=== PATIENT | female | born 1950 | race Caucasian/White ===

== ENCOUNTER → 2018-05-07 | Outpatient (CLI) | payer MEDICARE, OTHER ==
[~2018-05-07] MED LIST: CALCIUM-500 5001 CTB PO; CIPRO 500MG TA500 MG PO; COLACE 100100 MG/CAP PO; CRANBERRY500 M3 PO; EXCEDRIN TENSIO1 TAB PO; FERROUS SULFATE65 MG PO; MULTI VITAMINS1 TAB PO; NORCO 325 MG-51 TAB PO; PEPCID 20MG TAB20 MG PO; PYRIDIUM200 M1 PO; TYLENOL 500MG500 MG PO; [UNRECOGNIZED DRUG - CODE] PO
== END ==
LOC: MC.RAD 09:57
DX: Z12.31 Encounter for screening mammogram for malignant neoplasm of breast (principal); Z98.82 Breast implant status

== ENCOUNTER 2019-09-16 11:10 | Observation (INO) | payer MEDICARE, OTHER ==
[2019-09-16] VITALS (11 sets, daily range): BP systolic 99–121; BP diastolic 43–59; PULSE 58–98; TEMP 98.4–99.7
[~2019-09-16] VITALS: Ht 160 cm; Wt 60.7 kg
[2019-09-16 11:56] LABS: HEMATOCRIT 46.5 % (37.0-47.0); HEMOGLOBIN 15.1 g/dl (12.5-16.0); MEAN CELL VOLUME 91 fl (80.0-100.0); MEAN CORPUSCULAR HEMOGLOBIN 30 pg (27.0-31.0); MEAN CORPUSCULAR HGB CONC 33 g/dl (33.0-37.0); MEAN PLATELET VOLUME 9.4 fl (7.4-10.4); PLATELET COUNT 231 K/mm3 (130-400); RED BLOOD COUNT 5.09 M/mm3 (4.10-5.30); REDCELL DISTRIBUTION WIDTH-CV 12.2 % (11.5-14.5)
[2019-09-16 12:07] LABS: ALBUMIN 4.8 gm/dL (3.5-5.0); BILIRUBIN,TOTAL 1.1 mg/dL (0.0-1.0); CALCIUM 10.1 mg/dL (8.4-10.2); CREATININE, serum 0.65 (0.52-1.25); POTASSIUM 4.5 mmol/L (3.4-5.0); TOTAL PROTEIN 7.7 gm/dL (6.4-8.2)
[2019-09-16 12:18] LABS: EOSINOPHIL 1 % (0-4); LYMPHOCYTE 7 % (20.0-51.0); NEUTROPHILS 92 % (42.0-75.2); PLATELET ESTIMATE NORMAL (NORMAL)
[2019-09-16 13:21] LABS: COLLECTION METHOD CLEAN CATCH
[2019-09-16 13:54] LABS: MUCOUS Present /lpf; PH 7 (5-8); SQUAMOUS EPITHELIAL None Seen /hpf; URINE APPEARANCE Cloudy; URINE BACTERIA Moderate /hpf; URINE BILIRUBIN Negative (NEGATIVE); URINE BLOOD 2+ (NEGATIVE); URINE COLOR Yellow; URINE GLUCOSE Negative (NEGATIVE); URINE KETONE Negative (NEGATIVE); URINE LEUKOCYTE ESTERASE 3+ (NEGATIVE); URINE NITRATE Positive (NEGATIVE); URINE PROTEIN(semi-quant) Negative (NEGATIVE); URINE RBC 20-50 /hpf; URINE UROBILINOGEN Negative (NEGATIVE)
--- NOTE | 2019-09-16 16:10 | NUR ---
Patient's admission assessment completed. Patient is going down for surgery. She was sent with IVF's to straight tubing. Consent signed and on the chart. Family at bedside. No other changes at this time. Chart off the floor with patient.
--- NOTE | 2019-09-16 18:15 | NUR ---
Patient is back from surgery. She had the urge to void, she was able to void hazy light pink urine. She missed the hat. Patient is alert and oriented. Her family is at bedside. No other changes at this time. Call light within reach.
--- NOTE | 2019-09-16 21:00 | NUR ---
Pt currently lying in bed. She has no complaints at this time. Her son was at bedside but he left to go home. Pt ambulated well to the bathroom. Pts post- op vitals were all within normal limits. Pt call light is within reach and bed is in lowest position.
[2019-09-17 03:52] VITALS: BP 104/50; PULSE 66; TEMP 98.3
--- NOTE | 2019-09-17 06:18 | NUR ---
Pt called out and stated that she has a headache. On a scale of 1 to 10 she rated her pain at a 7. After reassessing the pt she stated that her pain was better. She stated that she was now at a 4. Pt is resting in bed and has no other complaints at this time. Call light is within reach.
--- NOTE | 2019-09-17 08:00 | NUR ---
Patient resting in bed at this time. Patient is alert and oriented, answers questions appropriately. Patient reports pain in her abdomen is beginning to worsen, also reports a headache. Patient denies further needs at this time, call light within reach.
[2019-09-17 08:28] VITALS: BP 100/42; PULSE 70; TEMP 98.1
--- NOTE | 2019-09-17 10:10 | NUR ---
Discharge teaching completed. Discussed discharge medications and importance of taking medications as ordered. Discussed discharge instructions and keeping follow up appointments. Patient and family verbalize understanding. INT removed, catheter intact, hemostasis achieved. Patient dressed and escorted to visitor entrance where she entered a private vehicle.
--- NOTE | 2019-09-17 12:02 | NUR ---
Plan to return home in [place] with DTR as care support and Son Yani is EMR contact . Assess: DTR will transport. Patient reports that Bruna her DTR is coming to take her home. PCP Dr. Clement Benitez, no [facility]. Patient prefers [facility] on [address] for RX. Has a F/U with Gali Humphreys on Thursday. Action: Declined any additonal support services, does not have a DPOA, no DME reported. Educated on services. Nothing follows
== END 2019-09-17 10:10 | disposition home or self-care (01) ==
LOC: COL.ER 11:10 → SURG 12:59
PROVIDERS: Physician Assistant; ADMIT Urology
DX: N20.1 Calculus of ureter (principal); Z87.441 Personal history of nephrotic syndrome; Z88.2 Allergy status to sulfonamides; Z80.9 Family history of malignant neoplasm, unspecified; Z88.1 Allergy status to other antibiotic agents; M19.90 Unspecified osteoarthritis, unspecified site; G43.909 Migraine, unspecified, not intractable, without status migrainosus; Z85.828 Personal history of other malignant neoplasm of skin
CPT/HCPCS: C1769; C2617; G0378; J0690; J0696; J1100; J1170; J1885; J2405; J2704; J7030; Q9967

== ENCOUNTER → 2020-05-10 | Outpatient (CLI) | payer MEDICARE, OTHER | LOC: ZCOL.LAB 17:00 | DX: R51.9 Headache, unspecified (principal); R09.81 Nasal congestion; R53.83 Other fatigue; Z20.828 Contact with and (suspected) exposure to other viral communicable diseases ==

== ENCOUNTER → 2020-07-04 | Outpatient (CLI) | payer MEDICARE, OTHER | LOC: MC.RAD 07:28 | DX: Z12.31 Encounter for screening mammogram for malignant neoplasm of breast (principal) ==

== ENCOUNTER 2020-10-28 17:30 | Emergency (ER) | payer MEDICARE, OTHER ==
[~2020-10-28] VITALS: Ht 162.6 cm; Wt 59.1 kg
[2020-10-28 17:35] VITALS: TEMP 97.2
[2020-10-28 19:00] VITALS: BP 134/65; PULSE 68
== END 2020-10-28 19:02 | disposition home or self-care (01) ==
LOC: COL.ER 17:30
DX: S82.002A Unspecified fracture of left patella, initial encounter for closed fracture (principal); N20.1 Calculus of ureter; D50.9 Iron deficiency anemia, unspecified; Z88.1 Allergy status to other antibiotic agents; Z88.2 Allergy status to sulfonamides; Z79.899 Other long term (current) drug therapy; W08.XXXA Fall from other furniture, initial encounter; Y92.009 Unspecified place in unspecified non-institutional (private) residence as the place of occurrence of the external cause
CPT/HCPCS: L1846